=== PATIENT | female | born 1980 | race Caucasian/White ===

== ENCOUNTER 2017-10-21 09:25 | Inpatient (IN) | payer OTHER ==
[~2017-10-21 09:25] MED LIST: BUPIVACAINE 0.25%/EPI (MDV) 50 ML VIAL INJ; EPHEDrine SULFATE 50 MG/5 ML SYG
[2017-10-21] MEDS ORDERED: POLYMYXIN/BACITRACIN 1L IRRIG (10:10)
[2017-10-21] MEDS ORDERED: ONDANSETRON 4 MG INJ (10:15)
[2017-10-21] MEDS ORDERED: CEFAZOLIN 1 GM INJ (10:15)
[2017-10-21] MEDS ORDERED: GLYCOPYRROLATE 0.4 MG INJ ×2 (10:15→12:05)
[2017-10-21] MEDS ORDERED: FENTAnyl 50 MCG/ML VIAL ×2 (10:15→12:08)
[2017-10-21] MEDS ORDERED: MIDAZOLAM 1 MG/ML 2 ML INJ (10:15)
[2017-10-21] MEDS ORDERED: ROCURONIUM 50 MG INJ (10:15)
[2017-10-21] MEDS ORDERED: PROPOFOL 20 ML (10:15)
[2017-10-21] MEDS ORDERED: NEOSTIGMINE 3 MG/3 ML SYRINGE ×2 (10:15→12:05)
[2017-10-21] MEDS ORDERED: DEXAMETHASONE 4 MG/ML 1 ML INJ (10:16)
[2017-10-21] MEDS ORDERED: THROMBIN 5000 UNIT VIAL (10:23)
[2017-10-21] MEDS ORDERED: CA CHLORIDE 10% 10 ML SYRINGE (10:23)
[2017-10-21] MEDS ORDERED: SURGIFOAM POWDER 1 GM KIT (10:23)
[2017-10-21] MEDS: D5W-0.45 NACL + KCL 20 MEQ 1,000 ML IV (10:25)
[2017-10-21] MEDS ORDERED: AL HYDROX/MG HYDROX/SIMETH 30 ML CUP PO (10:30)
[2017-10-21] MEDS ORDERED: CARISOPRODOL 350 MG TAB PO (10:30)
[2017-10-21] MEDS ORDERED: DIPHENHYDRAMINE 50 MG INJ IV ×2 (10:30→11:30)
[2017-10-21] MEDS ORDERED: NALOXONE (0.4 MG/ML) INJ IV (10:30)
[2017-10-21] MEDS ORDERED: BISACODYL 10 MG SUPP PR (10:30)
[2017-10-21] MEDS ORDERED: CEPASTAT LOZENGE MT (10:30)
[2017-10-21] MEDS ORDERED: HYDROmorphONE 0.5 MG/0.5 ML SYG IV (10:30)
[2017-10-21] MEDS ORDERED: ACETAMINOPHEN 325 MG TAB PO (10:30)
[2017-10-21] MEDS ORDERED: HYDROmorphONE (0.2 MG/ML) 10ML SYG IV ×3 (11:30)
[2017-10-21] MEDS ORDERED: MEPERIDINE 25 MG INJ IV (11:30)
[2017-10-21] MEDS ORDERED: EPHEDrine SULFATE 50 MG/5 ML SYG IV (11:30)
[2017-10-21] MEDS ORDERED: ONDANSETRON 4 MG INJ IV (11:30)
[2017-10-21] MEDS ORDERED: IPRATROPIUM (NEB) 0.5 MG/2.5 ML AMP HHN (11:30)
[2017-10-21] MEDS ORDERED: ALBUTEROL 0.083% (NEB) 2.5 MG/3 ML AMP HHN (11:30)
[2017-10-21] MEDS ORDERED: hydrALAzine 20 MG INJ IV (11:30)
[2017-10-21] MEDS ORDERED: OXYCODONE/ACETAMINOPHEN (5/325) TAB PO ×2 (11:30)
[2017-10-21] MEDS ORDERED: FENTAnyl 50 MCG/ML VIAL IV ×3 (11:30)
[2017-10-21] MEDS ORDERED: LABETALOL HCL 20MG INJ IV (11:30)
[2017-10-21] MEDS ORDERED: MIDAZOLAM 1 MG/ML 2 ML INJ IV (11:30)
[2017-10-21] MEDS ORDERED: TRIMETHOBENZAMIDE 100 MG/ML VIAL IM (11:30)
[2017-10-21] MEDS: POLYMYXIN/BACITRACIN 1L IRRIG IRR (11:48)
[2017-10-21] MEDS: SURGIFOAM POWDER 1 GM KIT MM (11:49)
[2017-10-21] MEDS: BUPIVACAINE 0.25%/EPI (SDV) 30 ML INJ INJ (11:49)
[2017-10-21] MEDS: THROMBIN 5000 UNIT VIAL TOP (11:50)
[2017-10-21] MEDS: CA CHLORIDE 10% 10 ML SYRINGE ZFS (11:50)
[2017-10-21] MEDS: FENTAnyl 50 MCG/ML VIAL IM (12:31)
[2017-10-21] MEDS ORDERED: METOCLOPRAMIDE 10 MG INJ (12:37)
[2017-10-21] MEDS: HYDROmorphONE 0.2 MG/ML PCA IV ×2 (13:02→23:59)
[2017-10-21] MEDS: CEFAZOLIN 1 GM/50 ML (PMX) 50 ML IVPB ×2 (17:30→18:30)
[2017-10-21] MEDS: DOCUSATE SODIUM 100 MG CAP PO (20:46)
[2017-10-21] MEDS: GABAPENTIN 300 MG CAP PO (20:46)
[2017-10-21] MEDS: ONDANSETRON 4 MG INJ IV (21:37)
[2017-10-22] MEDS: D5W-0.45 NACL + KCL 20 MEQ 1,000 ML IV (02:06)
[2017-10-22] MEDS: CEFAZOLIN 1 GM/50 ML (PMX) 50 ML IVPB (02:07)
[2017-10-22] MEDS: ONDANSETRON 4 MG INJ IV (05:07)
[2017-10-22 05:11] LABS: ADD MAN DIFF? NO
[2017-10-22 05:13] LABS: BASOPHILS % 0.3 % (0.0-2.0); EOSINOPHILS # 0.1 10^3/ul (0.0-0.5); EOSINOPHILS % 0.5 % (0.0-7.0); HEMOGLOBIN 13.8 g/dl (12.0-16.0); LYMPHOCYTES % 17.9 % (15.0-51.0); MEAN CORPUSCULAR HGB CONC 33.7 g/dl (32.0-37.0); MEAN CORPUSCULAR VOLUME 95.1 fl (82.0-101.0); MEAN PLATELET VOLUME 10.4 fl (7.4-10.4); MONOCYTE # 0.8 10^3/ul (0.3-0.9); MONOCYTES % 6.7 % (0.0-11.0); NEUTROPHIL # 8.4 10^3/ul (1.6-7.5); NEUTROPHILS % 74.4 % (39.0-77.0); PLATELET COUNT 265 10^3/UL (140-415); RED BLOOD COUNT 4.31 10^6/ul (4.20-5.40); RED CELL DISTRIBUTION WIDTH 12.4 % (11.5-14.5)
[2017-10-22 05:13] LABS: WHITE BLOOD COUNT 11.3 10^3/ul (4.8-10.8)
[2017-10-22 05:41] LABS: ANION GAP 16 (8-16); BLOOD UREA NITROGEN 7 mg/dl (7-20); CALCIUM 9.2 mg/dl (8.4-10.2); CARBON DIOXIDE 27 mmol/L (21-31); CHLORIDE 102 mmol/L (97-110); CREATININE 0.64 mg/dl (0.44-1.00); GLUCOSE 145 mg/dl (70-220); MAGNESIUM 1.7 mg/dl (1.7-2.5); POTASSIUM 4.5 mmol/L (3.5-5.1); SODIUM 140 mmol/L (135-144)
[2017-10-22] MEDS: PANTOPRAZOLE (EC) 40 MG TAB PO (06:05)
[2017-10-22] MEDS: DOCUSATE SODIUM 100 MG CAP PO (08:34)
[2017-10-22] MEDS: GABAPENTIN 300 MG CAP PO (08:34)
[2017-10-22] MEDS: HYDROCODONE/APAP (10/325) TAB PO ×2 (08:57→11:43)
[2017-10-22] MEDS ORDERED: HYDROCODONE/APAP (10/325) TAB PO (09:30)
== END 2017-10-22 13:27 | disposition home or self-care (01) | DRG 520 ==
LOC: REC 09:25 → MS1 14:49
PROC: 0SB40ZZ Excision of Lumbosacral Disc, Open Approach (ICD-10-PCS; principal; 2017-10-21 10:52)
DX: M51.17 Intervertebral disc disorders with radiculopathy, lumbosacral region (principal); Z85.828 Personal history of other malignant neoplasm of skin; Z68.33 Body mass index [BMI] 33.0-33.9, adult
CPT/HCPCS: 72020; 80048; 83735; 85025; 86999; 97116; 97164